=== PATIENT | male | born 1990 | race American Indian/Alaskan Native ===

== ENCOUNTER 2020-06-06 20:56 | Emergency (ER) | payer SELFPAY ==
[2020-06-06 23:25] LABS: Bacteria,Urine 1+ /HPF (Negative); Bilirubin,Urine NEG (Negative); Blood,Urine NEG (Negative); Color,Urine Yellow (Yellow); Hyaline Casts,Urine 1 /LPF; Mucus,Urine FEW /HPF; Sperm,Urine 1+ /HPF (NP)
[2020-06-06] MEDS ORDERED: ONDANSETRON 4 MG/2 ML INJ IV ONE (23:52)
[2020-06-06] MEDS ORDERED: MORPHINE 4 MG/1 ML INJ IV ONE (23:52)
[2020-06-06] MEDS ORDERED: SODIUM CHLORIDE 0.9% 1000 ML 1,000 ML IV ONE (23:52)
[2020-06-07 00:04] LABS: Albumin 3.7 g/dL (3.9-5); Blood Urea Nitrogen 7 mg/dL (9-20); Calcium 8.6 mg/dL (8.4-10.2); Hemolysis Index 0
[2020-06-07 00:11] LABS: Alanine Aminotransferase < 5 units/L (7-56); BUN/Creatinine Ratio 10
[2020-06-07 00:42] LABS: Hematocrit 29.3 % (35.5-45.6); Hemoglobin 9.8 gm/dl (11.8-15.2); Mean Corpuscular HGB Conc 34 % (32-34); Mean Corpuscular Volume 75 fl (84-94); Platelet Count 543 K/mm3 (140-440); Red Blood Count 3.93 M/mm3 (3.65-5.03)
--- NOTE | 2020-06-07 00:45 | Emergency Department Report ---
ED General Adult HPI - General Chief complaint: Rectal Pain Stated complaint: RECTAL BLEEDING Time Seen by Provider: 06/07/20 00:05 Source: patient Mode of arrival: Ambulatory Limitations: No Limitations - History of Present Illness Initial comments: Patient is a 29-year-old male who presents for rectal pain x2 months. pt has hx of HIV Pos , Patient denies fevers chills or nausea vomiting. Patient advises hospitalization 1 month ago for evaluation of same. Verbalizes no source of rectal pain or abdominal pain found on last visit. Patient states blood to tissue with bowel movement. There has been no fall injury or trauma, patient denies anal sex, patient denies history of hemorrhoids. Pain is exacerbated by attempting to sit pain relieved by offloading. Severity scale (0 -10): 3 - Related Data Previous Rx's Medication Instructions Recorded Last Taken Type Doxycycline Monohydrate 100 mg PO BID #20 tablet 06/07/20 Unknown Rx traMADoL [Ultram] 50 mg PO Q6HR PRN #12 tablet 06/07/20 Unknown Rx Allergies Allergy/AdvReac Type Severity Reaction Status Date / Time No Known Allergies Allergy Unverified 06/06/20 22:52 ED Review of Systems ROS: Stated complaint: RECTAL BLEEDING Other details as noted in HPI Constitutional: denies: chills, fever Eyes: denies: eye pain, eye discharge, vision change ENT: denies: ear pain, throat pain Respiratory: denies: cough, shortness of breath, wheezing Cardiovascular: denies: chest pain, palpitations Endocrine: no symptoms reported Gastrointestinal: abdominal pain, nausea. denies: vomiting, diarrhea, constipation, hematemesis, melena Genitourinary: denies: urgency, dysuria, frequency, hematuria, discharge Musculoskeletal: denies: back pain, joint swelling, arthralgia Skin: denies: rash, lesions Neurological: denies: headache, weakness, paresthesias Psychiatric: denies: anxiety, depression Hematological/Lymphatic: denies: easy bleeding, easy bruising ED Past Medical Hx - Past Medical History Previous Medical History?: No - Surgical History Past Surgical History?: No - Social History Smoking Status: Never Smoker Substance Use Type: None - Medications Home Medications: Home Medications Medication Instructions Recorded Confirmed Last Taken Type Doxycycline Monohydrate 100 mg PO BID #20 tablet 06/07/20 Unknown Rx traMADoL [Ultram] 50 mg PO Q6HR PRN #12 tablet 06/07/20 Unknown Rx ED Physical Exam - General Limitations: No Limitations General appearance: alert, in no apparent distress - Head Head exam: Present: atraumatic, normocephalic - Eye Eye exam: Absent: normal appearance - ENT ENT exam: Present: mucous membranes moist - Neck Neck exam: Present: normal inspection - Respiratory Respiratory exam: Present: normal lung sounds bilaterally. Absent: respiratory distress, wheezes, rales, rhonchi, stridor, chest wall tenderness - Cardiovascular Cardiovascular Exam: Present: regular rate, normal rhythm, normal heart sounds. Absent: systolic murmur, diastolic murmur, rubs, gallop - GI/Abdominal GI/Abdominal exam: Present: soft, guarding, normal bowel sounds. Absent: distended, tenderness, bruit, hernia - Rectal Rectal exam: Present: normal rectal tone, tenderness, normal prostate, other (purulent drainage yellow/green). Absent: black stool, bloody stool, fecal im paction, hemorrhoids, mass, prostate tenderness - exam: Present: normal inspection. Absent: testicular tenderness, urethral discharge, scrotal swelling External exam: Absent: normal external exam, erythema, lesions - Extremities Exam Extremities exam: Present: normal inspection - Back Exam Back exam: Present: normal inspection, full ROM. Absent: CVA tenderness (R), CVA tenderness (L) - Neurological Exam Neurological exam: Present: alert, oriented X3, CN II-XII intact, normal gait, reflexes normal - Psychiatric Psychiatric exam: Present: normal affect, normal mood - Skin Skin exam: Present: warm, dry, intact, normal color. Absent: rash ED Course Vital Signs 06/06/20 06/06/20 22:34 23:10 Temperature 100.2 F H Pulse Rate 113 H Respiratory 18 Rate Blood Pressure 126/78 [Left] O2 Sat by Pulse 99 Oximetry ED Medical Decision Making - Lab Data Result diagrams: 06/06/20 23:07 06/06/20 23:07 Labs 06/06/20 06/06/20 06/06/20 00:35 23:07 23:07 WBC 5.6 RBC 3.93 Hgb 9.8 L Hct 29.3 L MCV 75 L MCH 25 L MCHC 34 RDW 13.0 L Plt Count 543 H [place] % (Auto) [employer] PT INR APTT Sodium 134 L Potassium 4.4 Chloride 98.1 Carbon Dioxide 26 Anion Gap 14 BUN 7 L Creatinine 0.7 L Estimated GFR > 60 BUN/Creatinine Ratio 10 Glucose 93 Lactic Acid 0.60 L Calcium 8.6 Total Bilirubin 0.20 AST 9 ALT < 5 L Alkaline Phosphatase 47 Total Protein 8.2 Albumin 3.7 L Albumin/Globulin Ratio 0.8 Urine Color Urine Turbidity Urine pH Ur Specific [place] Urine Protein Urine Glucose (UA) Urine Ketones Urine Blood Urine Nitrite Urine Bilirubin Urine Urobilinogen Ur Leukocyte Esterase Urine WBC (Auto) Urine RBC (Auto) U Epithel Cells (Auto) Urine Bacteria (Auto) Hyaline Casts Urine Mucus Urine Sperm 06/06/20 06/07/20 Unknown 01:04 WBC RBC Hgb Hct MCV MCH MCHC RDW Plt Count [place] % (Auto) PT 13.5 INR 1.05 APTT 36.7 H Sodium Potassium Chloride Carbon Dioxide Anion Gap BUN Creatinine Estimated GFR BUN/Creatinine Ratio Glucose Lactic Acid Calcium Total Bilirubin AST ALT Alkaline Phosphatase Total Protein Albumin Albumin/Globulin Ratio Urine Color Yellow Urine Turbidity Clear Urine pH 6.0 Ur Specific [place] 1.024 Urine Protein 30 mg/dl Urine Glucose (UA) Neg Urine Ketones Neg Urine Blood Neg Urine Nitrite Neg Urine Bilirubin Neg Urine Urobilinogen 4.0 Ur Leukocyte Esterase Neg Urine WBC (Auto) 1.0 Urine RBC (Auto) 1.0 U Epithel Cells (Auto) < 1.0 Urine Bacteria (Auto) 1+ Hyaline Casts 1 Urine Mucus Few Urine Sperm 1+ - Radiology Data Radiology results: report reviewed, image reviewed CT abdomen pelvis w con INDICATION: Patient complains of rectal pain and bleeding x 1 week.. COMPARISON: None TECHNIQUE: Abdominal and pelvic CT exam performed. All CT scans at this location are performed using CT dose reduction for ALARA by means of automated exposure control. FINDINGS: CT ABDOMEN and PELVIS: Lung Bases: No significant abnormality. Liver: No significant abnormality. Biliary: No significant abnormality. Spleen: No significant abnormality. Pancreas: No significant abnormality. Adrenals: No significant abnormality. Kidneys: No significant abnormality. Lymphatics: There are a few mildly prominent mesorectal lymph nodes for example on image 158 of series 2. There is a prominent left inguinal lymph node which is rounded in morphology measuring approximately 1.8 cm. Mildly prominent lymph nodes along the pelvic sidewall and iliac chains also present. Vasculature: No significant abnormality. Bowel: Mild circumferential rectal wall thickening with associated hyperemia. Normal appendix. Pelvis: No significant abnormality. Osseous Structures: No aggressive osseous lesion. Additional Findings: None IMPRESSION: 1. Rectal wall thickening with mucosal hyperemia which is favored to represent proctitis. GI consultation is recommended and correlation with direct inspection. There is associated inguinal left lymphadenopathy as well as mildly prominent pelvic lymph nodes as described above. This could be reactive in etiology. However, following to ensure appropriate evolution is recommended. Signer Name: Gabriel Hare MD Signed: 06/07/2020 2:06 AM Workstation Name: [id number] Transcribed By: BROCK Dictated By: Gabriel Hare MD Electronically Authenticated By: Gabriel Hare MD Signed Date/Time: 06/07/20205 DD/ 6 TD/TT: - Medical Decision Making CT Abd Pelvis: Rectal wall thickening with mucosal hyperemia which is favored to represent proctitis, pt tx'd for same, advises symptoms are improved, pt is tolerating po intake with out n/v, will dc'd to home with rx , will follow up with [place] PCP in 1-2 days. pt verbalized agreement and understanding of discharge plan. Pt dc'd in stable condition at this time. Critical care attestation.: If time is entered above; I have spent that time in minutes in the direct care of this critically ill patient, excluding procedure time. ED Disposition Clinical Impression: Proctitis Disposition: DC-01 TO HOME OR SELFCARE Is pt being admited?: No Does the pt Need Aspirin: No Condition: Stable Instructions: Proctitis Additional Instructions: follow up with you [facility] Primary Care doctor : [address], [place] [address] , Prescriptions: Doxycycline Monohydrate 100 mg PO BID #20 tablet traMADoL [Ultram] 50 mg PO Q6HR PRN #12 tablet PRN Reason: Pain Referrals: ALESHIA LUCIANO MD [Staff Physician] - 3-5 Days Forms: Work/School Release Form(ED) Time of Disposition: 02:48
[2020-06-07 01:26] LABS: INR 1.05 (0.87-1.13)
[2020-06-07 01:27] LABS: Partial Thromboplastin Time 36.7 Sec. (24.2-36.6)
--- NOTE | 2020-06-07 02:10 | Cat Scan Report ---
CT abdomen pelvis w con INDICATION: Patient complains of rectal pain and bleeding x 1 week.. COMPARISON: None TECHNIQUE: Abdominal and pelvic CT exam performed. All CT scans at this location are performed using CT dose reduction for ALARA by means of automated exposure control. FINDINGS: CT ABDOMEN and PELVIS: Lung Bases: No significant abnormality. Liver: No significant abnormality. Biliary: No significant abnormality. Spleen: No significant abnormality. Pancreas: No significant abnormality. Adrenals: No significant abnormality. Kidneys: No significant abnormality. Lymphatics: There are a few mildly prominent mesorectal lymph nodes for example on image 158 of serie s 2. There is a prominent left inguinal lymph node which is rounded in morphology measuring approxima tely 1.8 cm. Mildly prominent lymph nodes along the pelvic sidewall and iliac chains also present. Vasculature: No significant abnormality. Bowel: Mild circumferential rectal wall thickening with associated hyperemia. Normal appendix. Pelvis: No significant abnormality. Osseous Structures: No aggressive osseous lesion. Additional Findings: None IMPRESSION: 1. Rectal wall thickening with mucosal hyperemia which is favored to represent proctitis. GI consulta tion is recommended and correlation with direct inspection. There is associated inguinal left lymphad enopathy as well as mildly prominent pelvic lymph nodes as described above. This could be reactive in etiology. However, following to ensure appropriate evolution is recommended. Signer Name: Gabriel Hare MD Signed: 06/07/2020 2:06 AM Workstation Name: [id number]
[2020-06-07] MEDS ORDERED: cefTRIAXone/NS 1 GM/50 ML 1 GM/50 ML BAG IV ONE (02:30)
[2020-06-07] MEDS ORDERED: AZITHROMYCIN 250 MG TAB PO ONE (02:30)
[2020-06-07 02:57] LABS: Total Cells Counted 100
[2020-06-07 02:58] LABS: Hypochromasia 1+; Platelet Estimate Consistent w Auto
[2020-06-07 04:15] VITALS: BP 128/75
== END 2020-06-07 03:30 | disposition home or self-care (01) ==
LOC: ED 20:56
DX: K62.89 Other specified diseases of anus and rectum (principal); Z79.899 Other long term (current) drug therapy
CPT/HCPCS: 36415; 74177; 80053; 81001; 82140; 85007; 85025; 85610; 85730; 96361; 96365; 96375; 99284; J0696; J2270; J2405; J7030; Q9967